=== PATIENT | female | born 1960 | race Asian ===

== ENCOUNTER 2018-01-23 08:59 | Day surgery (SDC) | payer BC, OTHER ==
[2018-01-17 12:51] VITALS: BMI 28.5
[2018-01-23] MEDS ORDERED: PROPOFOL 20 ML ONE ×2 (09:40)
[2018-01-23 10:53] VITALS: TEMP 98.2
[2018-01-23 11:33] VITALS: BP 117/81; PULSE 64
--- NOTE | 2018-01-25 15:58 | PATH ---
Surgical Pathology Report Patient Name: WALESKA [facility]. Rec. #: [id number] /Age/Gender: 1960 (Age: 57) / F Account: [id number] Location: [facility] Taken: 01/23/2018 Received: 01/23/2018 Reported: 01/25/2018 Physicians: Evaristo Alexander M.D. Specimen(s) Received [facility] Clinical History History of polyps Postoperative diagnosis: Polyp Final Diagnosis HEPATIC FLEXURE POLYP, POLYPECTOMY: INFLAMMATORY POLYP. Electronically Signed Lino Montes M.D. Gross Description Received in formalin, labeled "hepatic flexure" are 2 hurley, irregular and polypoid portions of soft tissue measuring 0.3 and 0.6 cm. in greatest dimension. The specimens are submitted in toto in one cassette. /01/24/2018 [facility]01/24/2018
== END 2018-01-23 11:15 | disposition home or self-care (01) ==
LOC: FASU-ENDO 08:59
PROVIDERS: ATTEND Internal Medicine Gastroenterology
PROC: 0DBL8ZX Excision of Transverse Colon, Via Natural or Artificial Opening Endoscopic, Diagnostic (ICD-10-PCS; principal; 2018-01-23 10:07)
DX: Z86.010 Personal history of colon polyps (principal); K51.40 Inflammatory polyps of colon without complications
CPT/HCPCS: 88305-TC

== ENCOUNTER 2023-03-16 08:02 | Day surgery (SDC) | payer BC, OTHER ==
[2023-03-14 14:07] VITALS: BMI 28.8
[2023-03-16 09:16] VITALS: TEMP 97.6
[2023-03-16 09:23] VITALS: BP 101/56; PULSE 62; RESP 19
== END 2023-03-16 09:30 | disposition home or self-care (01) ==
LOC: FASU-ENDO 08:02
PROVIDERS: ATTEND Internal Medicine Gastroenterology
PROC: 0DBN8ZX Excision of Sigmoid Colon, Via Natural or Artificial Opening Endoscopic, Diagnostic (ICD-10-PCS; 2023-03-16)
PROC: 0DBP8ZX Excision of Rectum, Via Natural or Artificial Opening Endoscopic, Diagnostic (ICD-10-PCS; principal; 2023-03-16 08:49)
DX: Z12.11 Encounter for screening for malignant neoplasm of colon (principal); D12.5 Benign neoplasm of sigmoid colon; D12.8 Benign neoplasm of rectum; K64.8 Other hemorrhoids; Z86.010 Personal history of colon polyps
CPT/HCPCS: 82962